=== PATIENT | male | born 1985 | race Caucasian/White ===

== ENCOUNTER 2017-09-16 13:27 | Emergency (ER) | payer BC, SELFPAY ==
[2017-09-16 14:01] VITALS: BP 132/82; PULSE 101; RESP 20; TEMP 36.8; O2SAT 97; BMI 28.1
--- NOTE | 2017-09-16 14:34 | HMH.EDUTC ---
[facility] [place]ression: Sinusitis Qualifiers: Sinusitis location: maxillary Chronicity: acute Recurrence: non-recurrent Qualified Code(s): J01.00 - Acute maxillary sinusitis, unspecified Disposition: Home, Self-Care Condition on Discharge: Good Additional Instructions: Increase fluids Follow-up with primary care this week if no improvement Tylenol Motrin as needed for pain or fever If symptoms worsen or do not improve return or be seen in the ER Prescriptions: cephALEXin [Keflex 500mg Cap] 500 mg PO BID 7 Days #14 cap Referrals: Michi Abraham MD [Primary Care Provider] - Time of Disposition: 14:57 Medical Decision Making Vital Signs: 09/16/17 14:01 09/16/17 14:56 Temperature 98.2 F 98.2 F Temperature Source Temporal Artery Scan Pulse Rate 101 H Pulse Rate [Right Brachial] 101 H Respiratory Rate 20 20 Blood Pressure 132/82 Blood Pressure [Right Arm] 132/82 Blood Pressure Mean [Right Arm] 98 Blood Pressure Source [Right Arm] Automatic Cuff Blood Pressure Position [Right Arm] Sitting 02 Sat by Pulse Oximetry 97 Oxygen Delivery Method Room Air - Lab Data Lab Results 09/16/17 13:58: Influenza Type A Ag Negative, Influenza Type B Ag Negative Orders (Tests/Meds): ED MEDICATIONS Discontinued Medications Generic Name Dose Route Start Last Admin Trade Name Bertrandq PRN Reason Stop Dose Admin Dexamethasone Sodium Phosphate 4 mg 09/16/17 14:33 09/16/17 14:35 Decadron 4mg/Ml 1ml Vial IM 09/16/17 14:34 4 mg ONCE ONE Administration - Rah Inquiry Pt receiving controlled substance: No [facility] [place] - General Chief complaint: Urgent [facility] Center Stated complaint: sinues Time Seen by Provider: 09/16/17 14:35 Mode of Arrival: Ambulatory Source of Information: Patient Limitations: No Limitations Description of Symptoms (Recalled from Triage Doc. by RN): HEAD CONGESTION, SINUS INFECTION HEENT Symptoms (Recalled from RN notes): Yes (HEAD CONGESTION, SINUS INFECTION) Resp Symptoms (Recalled from RN notes): No Skin Symptoms (Recalled from RN notes): No MS Symptoms (Recalled from RN notes): No Functional Status (Recalled from RN notes): N/A - History of Present Illness Provider Complaint: 32-year-old male presents for sinus pressure, yellow nasal congestion, and nasal drainage started yesterday. - Related Data Previous Rx's Medication Instructions Recorded cephALEXin [Keflex 500mg Cap] 500 mg PO BID 7 Days #14 cap 09/16/17 Allergies Allergy/AdvReac Type Severity Reaction Status Date / Time No Known Allergies Allergy Verified 09/16/17 14:04 - Worker's Comp Is this a Worker's Comp case?: No H History I have reviewed the patient's past medical history: Yes Medical History: Denies:: Cancer, Diabetes Mellitus Type 1, Diabetes Mellitus Type 2, MRSA Amputation: No Fractures: No - Social History Smoking Status: Never smoker Alcohol Intake: never - Psychiatric History Expresses thoughts of harming self/others: None Suicide Plan Description: No Plan ROS Obtained: Yes All systems reviewed & no additional complaints - Constitutional Constitutional: Reports system reviewed and no additional complaints, except as docu - Eyes Eyes: Reports system reviewed and no additional complaints, except as docu - ENT Ears, Nose, Mouth, and Throat: Reports system reviewed and no additional complaints, except as docu, Reports nasal congestion, Reports sinus pressure - Cardiovascular Cardiovascular: Reports system reviewed and no additional complaints, except as docu - Respiratory Respiratory: Yes system reviewed and no additional complaints, except as docu - Gastrointestinal Gastrointestingal: Reports: system reviewed and no additional complaints, except as docu - Musculoskeletal Musculoskeletal: Reports system reviewed and no additional complaints, except as docu - Integumentary/Breasts Skin/Breast: Reports system reviewed and no addit
--- NOTE | 2017-09-16 14:37 | ED_ITS ---
[facility] [place] Clinical Impression: Sinusitis Qualifiers: Sinusitis location: maxillary Chronicity: acute Recurrence: non-recurrent Qualified Code(s): J01.00 - Acute maxillary sinusitis, unspecified Disposition: Home, Self-Care Condition on Discharge: Good Additional Instructions: Increase fluids Follow-up with primary care this week if no improvement Tylenol Motrin as needed for pain or fever If symptoms worsen or do not improve return or be seen in the ER Prescriptions: cephALEXin [Keflex 500mg Cap] 500 mg PO BID 7 Days #14 cap Referrals: Michi Abraham MD [Primary Care Provider] - Time of Disposition: 14:57 Medical Decision Making Vital Signs: 09/16/17 14:01 09/16/17 14:56 Temperature 98.2 F 98.2 F Temperature Source Temporal Artery Scan Pulse Rate 101 H Pulse Rate [Right Brachial] 101 H Respiratory Rate 20 20 Blood Pressure 132/82 Blood Pressure [Right Arm] 132/82 Blood Pressure Mean [Right Arm] 98 Blood Pressure Source [Right Arm] Automatic Cuff Blood Pressure Position [Right Arm] Sitting 02 Sat by Pulse Oximetry 97 Oxygen Delivery Method Room Air - Lab Data Lab Results 09/16/17 13:58: Influenza Type A Ag Negative, Influenza Type B Ag Negative Orders (Tests/Meds): ED MEDICATIONS Discontinued Medications Generic Name Dose Route Start Last Admin Trade Name Bertrandq PRN Reason Stop Dose Admin Dexamethasone Sodium Phosphate 4 mg 09/16/17 14:33 09/16/17 14:35 Decadron 4mg/Ml 1ml Vial IM 09/16/17 14:34 4 mg ONCE ONE Administration - Rah Inquiry Pt receiving controlled substance: No [facility] [place] HPI - General Chief complaint: Urgent Treatment Center Stated complaint: sinues Time Seen by Provider: 09/16/17 14:35 Mode of Arrival: Ambulatory Source of Information: Patient Limitations: No Limitations Description of Symptoms (Recalled from Triage Doc. by RN): HEAD CONGESTION, SINUS INFECTION HEENT Symptoms (Recalled from RN notes): Yes (HEAD CONGESTION, SINUS INFECTION) Resp Symptoms (Recalled from RN notes): No Skin Symptoms (Recalled from RN notes): No MS Symptoms (Recalled from RN notes): No Functional Status (Recalled from RN notes): N/A - History of Present Illness Provider Complaint: 32-year-old male presents for sinus pressure, yellow nasal congestion, and nasal drainage started yesterday. - Related Data Previous Rx's Medication Instructions Recorded cephALEXin [Keflex 500mg Cap] 500 mg PO BID 7 Days #14 cap 09/16/17 Allergies Allergy/AdvReac Type Severity Reaction Status Date / Time No Known Allergies Allergy Verified 09/16/17 14:04 - Worker's Comp Is this a Worker's Comp case?: No [facility] History I have reviewed the patient's past medical history: Yes Medical History: Denies:: Cancer, Diabetes Mellitus Type 1, Diabetes Mellitus Type 2, MRSA Amputation: No Fractures: No - Social History Smoking Status: Never smoker Alcohol Intake: never - Psychiatric History Expresses thoughts of harming self/others: None Suicide Plan Description: No Plan ROS Obtained: Yes All systems reviewed & no additional complaints - Constitutional Constitutional: Reports system reviewed and no additional complaints, except as docu - Eyes Eyes: Repor
[2017-09-16 14:49] LABS: UTC Influenza A Antigen Negative (Negative); UTC Influenza B Antigen Negative (Negative)
[2017-09-16 14:56] VITALS: BP 132/82; PULSE 101; RESP 20; TEMP 36.8; O2SAT 97
== END 2017-09-16 14:57 | disposition home or self-care (01) ==
PROVIDERS: Emergency Provider Nurse Practitioner Family; Family Provider Family Medicine; PCP Family Medicine
DX: J01.00 Acute maxillary sinusitis, unspecified (principal)
CPT/HCPCS: 87804; 96372; 99202

== ENCOUNTER → 2018-12-26 14:07 | Outpatient (CLI) | payer BC, SELFPAY ==
--- NOTE | 2018-12-26 14:37 | US_ITS ---
US extremity LT limited HISTORY: ITS.REASON: AXILLARY SWELLING ORDERING PHYSICIAN: Michi Abraham MD PATIENT AGE: 33 years COMPARISON: None FINDINGS: There is a small lymph node in the axilla at 15 x 8 mm. No other significant anomalies are evident. No abnormal fluid collections. IMPRESSION: Small axillary lymph node otherwise negative ultrasound of left axilla
--- NOTE | 2018-12-26 14:37 | US_ITS ---
US extremity RT limited CLINICAL INDICATION: ITS.REASON: AXILLARY SWELLING ORDERING PHYSICIAN: Michi Abraham MD PATIENT AGE: 33 years Comparison: None FINDINGS: Ultrasound is performed of the right axilla spreading a 3 x 1 similar lymph node. No abnormal fluid collection or other significant anomalies evident. IMPRESSION: 3 cm x 1 cm lymph node in the right axilla. CT of the axilla may be of further value if clinically desired.
== END ==
PROVIDERS: PCP Family Medicine; Visit Provider Family Medicine
DX: M79.89 Other specified soft tissue disorders (principal)
CPT/HCPCS: 76882

== ENCOUNTER → 2019-01-15 13:54 | Outpatient (CLI) | payer BC, SELFPAY ==
--- NOTE | 2019-01-15 13:57 | CT_ITS ---
CT chest wo con HISTORY: ITS.REASON: AXILLARY LYMPHADENOPATHY ORDERING PHYSICIAN: Michi Abraham MD PATIENT AGE: 33 years COMPARISON: None Technique: Axial images obtained. Sagittal, and coronal reformatted images are also generated and reviewed. All CT scans at the facility use one or more dose reduction, viz: automated exposure control, ma/kV adjustment per patient size (including targeted exams where dose is matched to indication, i.e. head), or iterative reconstruction technique. FINDINGS: HEART: Unremarkable. Normal heart size. No significant pericardial effusion. MEDIASTINAL AND HILAR STRUCTURES: Mediastinal structures are unremarkable. There are a few very small noncalcified benign-appearing lymph nodes. There are other calcified lymph nodes the largest in the subcarinal area. There is a benign calcified right hilar lymph node. PULMONARY ARTERIES: Pulmonary arteries cannot be evaluated since intravenous contrast was not given. AORTA: Unremarkable. LUNGS: Lungs are clear except there is a benign calcific granuloma in the right middle lobe. PLEURAL SPACES: No significant effusion. No evidence of pneumothorax. BONY STRUCTURES: No acute bony abnormalities apparent LYMPH NODES: No enlarged lymph nodes evident UPPER ABDOMEN: Unremarkable ADDITIONAL FINDINGS: No other significant abnormalities IMPRESSION: Evidence of prior granulomatous disease. Some small benign-appearing noncalcified mediastinal and small partially fatty benign axillary lymph nodes bilaterally.
== END ==
PROVIDERS: PCP Family Medicine; Visit Provider Family Medicine
DX: R59.0 Localized enlarged lymph nodes (principal)
CPT/HCPCS: 71250

== ENCOUNTER → 2020-06-26 15:17 | Outpatient (CLI) | payer BC, SELFPAY ==
--- NOTE | 2020-06-26 15:20 | XR_ITS ---
PROCEDURE: XR KUB CLINICAL INDICATION: kidney stone Right-sided groin pain COMPARISON: CT CHESTWO CT chest wo con from 01/15/2019 FINDINGS: Gas pattern-The bowel gas pattern is unremarkable. No obvious obstruction. Calcifications-No abnormal calcifications are evident. No obvious renal or ureteral calculi. Bones-No acute bony anomalies evident. There are hyperdensities in the lower pelvic region which are probably vascular. IMPRESSION: No acute findings. Dictated by: Drew Antonio MD 06/26/2020 17:57 Drew Antonio MD in [place] 06/26/2020 17:57
== END ==
PROVIDERS: PCP Family Medicine; Visit Provider Urology
DX: N20.0 Calculus of kidney (principal)
CPT/HCPCS: 74018

== ENCOUNTER 2020-07-25 11:04 | Emergency (ER) | payer BC, SELFPAY ==
[2020-07-25 11:30] VITALS: BP 00/00; PULSE 0; RESP 0; TEMP -17.7; TEMP 0
--- NOTE | 2020-07-25 18:59 | PC.NURSE ---
patient notified of positive covid results
== END 2020-07-25 11:31 | disposition left against medical advice (07) ==
PROVIDERS: Emergency Provider Nurse Practitioner Family; PCP Family Medicine
DX: Z20.822 Contact with and (suspected) exposure to COVID-19 (principal)
CPT/HCPCS: U0003

== ENCOUNTER 2020-07-25 13:59 | Emergency (ER) | payer BC, SELFPAY ==
[2020-07-25 14:40] VITALS: BP 123/76; PULSE 77; RESP 20; TEMP 36.3; O2SAT 98; BMI 28.1
--- NOTE | 2020-07-25 14:57 | HMH.EDUTC ---
[facility] [place] Impression: Exposure to COVID-19 virus Sinusitis Qualifiers: Sinusitis location: unspecified location Chronicity: acute Recurrence: non-recurrent Qualified Code(s): J01.90 - Acute sinusitis, unspecified Disposition: Home, Self-Care Condition on Discharge: Good Instructions: DI for Sinusitis, Preventing the Spread of Coronavirus Discharge Instructions Additional Instructions: Drink plenty of fluids. Take tylenol for pain or fever. Return if you begin to have difficulty breathing. Follow up with your regular doctor. GO TO THE ER FOR ANY WORSENING SYMPTOMS Prescriptions: Azithromycin [Z-Lenard 250mg Tab*] 250 mg PO UD DOSE PK #6 tab Transmission Status: Received by [facility] Referrals: Michi Abraham MD [Primary Care Provider] - Time of Disposition: 15:06 Medical Decision Making - Medical Records Medical records reviewed: No: I reviewed the patient's medical records. - Rah Inquiry Pt receiving controlled substance: No Vital Signs: 07/25/20 14:40 07/25/20 15:05 Temperature 97.4 F L 97.4 F L Temperature Source Oral Pulse Rate 77 Pulse Rate [Right Brachial] 77 Respiratory Rate 20 20 Blood Pressure 123/76 Blood Pressure [Right Arm] 123/76 Blood Pressure Mean [Right Arm] 91 Blood Pressure Source [Right Arm] Automatic Cuff Blood Pressure Position [Right Arm] Sitting 02 Sat by Pulse Oximetry 98 Oxygen Delivery Method Room Air [facility] [place] - General Stated complaint: Covid exposure Time Seen by Provider: 07/25/20 14:57 Mode of Arrival: Ambulatory Source of Information: Patient Limitations: No Limitations Description of Symptoms (Recalled from Triage Doc. by RN): PATIENT REQUESTING COVID TEST D/T EXPOSURE; C/O NASAL CONGESTION HEENT Symptoms (Recalled from RN notes): Yes Resp Symptoms (Recalled from RN notes): No Skin Symptoms (Recalled from RN notes): No MS Symptoms (Recalled from RN notes): No Functional Status (Recalled from RN notes): WNL - History of Present Illness Provider Complaint: He states that he has been exposed to covid by his having it. He c/o sinus congestion for the past 2 days. He has a history of getting bad sinus infections. - Related Data Previous Rx's Medication Instructions Recorded cephALEXin [Keflex 500mg Cap] 500 mg PO BID 7 Days #14 cap 09/16/17 Azithromycin [Z-Lenard 250mg Tab*] 250 mg PO UD DOSE PK #6 tab 07/25/20 Allergies Allergy/AdvReac Type Severity Reaction Status Date / Time No Known Allergies Allergy Verified 06/26/20 15:30 - Worker's Comp Is this a Worker's Comp case?: No [facility] History - Hepatitis A Screen Drug use history?: No High risk sexual behaviors?: No History of sexually transmitted infection?: No Currently employed?: No Childcare worker?: No Do you have indoor plumbing?: Yes Do you have electricity?: Yes Attestation statement:: This patient has been screened for Hepatitis A risk factors. I have reviewed the patient's past medical history: Yes Medical History: Reports:: Kidney Stones Denies:: Cancer, Diabetes Mellitus Type 1, Diabetes Mellitus Type 2, MRSA Other Surgeries: Yes: No Previous Surgery Amputation: No Fractures: No Comment: kidney stone 10 yrs ago - Social History Smoking Status: Never smoker Alcohol Intake: never Occupational Status: other Housing: house Household Members: spouse, family Family Hx:: Cancer, Diabetes, Heart Attack, Hypertension ROS Obtained: Yes All systems reviewed & no additional complaints - Constitutional Constitutional: Reports chills, Denies fever(s), Reports poor appetite, Reports malaise - Eyes Eyes: Denies eye discharge - ENT Ears, Nose, Mouth, and Throat: Reports as per HPI - Cardiovascular Cardiovascular: Denies chest pain - Respiratory Respiratory: Yes as per HPI Physical Exam - General General appearance: alert, in no apparent distress - Head Head exam: atraumatic, normocephalic, normal inspection -
[2020-07-25 15:05] VITALS: BP 123/76; PULSE 77; RESP 20; TEMP 36.3; O2SAT 98
== END 2020-07-25 15:11 | disposition home or self-care (01) ==
PROVIDERS: Emergency Provider Nurse Practitioner Family; PCP Family Medicine
DX: U07.1 COVID-19 (principal); J01.90 Acute sinusitis, unspecified
CPT/HCPCS: 99202; G0463

== ENCOUNTER 2022-05-30 21:07 | Emergency (ER) | payer BC, SELFPAY ==
[2022-05-30 21:08] VITALS: BP 151/97; PULSE 81; RESP 16; TEMP 36.6; O2SAT 99; BMI 29.0
--- NOTE | 2022-05-30 21:57 | XR_ITS ---
PROCEDURE INFORMATION: Exam: XR Chest Exam date and time: 05/30/2022 9:54 PM Age: 36 years old Clinical indication: Other: High BP TECHNIQUE: Imaging protocol: Radiologic exam of the chest. Views: 2 views. COMPARISON: CHESTWO CT chest wo con 01/15/2019 2:03 PM FINDINGS: Lungs: Granuloma within the right lower lobe. No consolidation. Pleural spaces: No pneumothorax. Heart/Mediastinum: Calcified mediastinal and hilar lymph nodes. No cardiomegaly. Bones/joints: No acute fracture. IMPRESSION: No acute findings.
--- NOTE | 2022-05-30 21:59 | ECG_ITS ---
APPROVED REPORT Exam: Resting ECG HR:66 bpm ECG Measurements Heart Rate 66 AXES AR 162 P 49 QRSd 96 QRS 76 QT 366 T 57 QTc 380 Conclusion SINUS RHYTHM NORMAL ECG UNCONFIRMED REPORT Electronically signed by : Michi Zafar MD 05/31/2022 18:08:46
--- NOTE | 2022-05-30 22:05 | PC.NURSE ---
pt getting xray at this time
[2022-05-30 22:48] LABS: Basophils # 0.1 K/mm3 (0-0.2); Basophils % 0.8 % (0.1-2.0); Eosinophils # 0.1 K/mm3 (0.0-0.4); Eosinophils % 0.9 % (0.1-12.0); Hematocrit 49.2 % (42.0-52.0); Lymphocytes # 2.8 K/mm3 (0.7-4.5); Mean Corpuscular HGB Conc 34.5 g/dL (31.8-35.4); Mean Corpuscular Hemoglobin 28.7 pg (27.0-31.2); Mean Corpuscular Volume 83.1 fl (80-94); Monocytes # 0.8 K/mm3 (0.1-1.0); Monocytes % 5.1 % (1.7-9.3); Neutrophils % 74.2 % (37.0-80.0); Platelet Count 327 K/mm3 (142-424); Red Blood Count 5.92 M/mm3 (4.60-6.20); White Blood Count 14.7 K/mm3 (4.8-10.8)
[2022-05-30 23:00] VITALS: BP 136/83; PULSE 69; O2SAT 99
[2022-05-30 23:00] LABS: Chloride 99 mmol/L (98-107); Potassium 3.7 mmoL/L (3.5-5.1); Sodium 140 mmol/L (136-145)
[2022-05-30 23:03] LABS: Alanine Aminotransferase 32 U/L (12-78); Albumin Level 4.8 g/dl (3.5-5.0); Albumin/Globulin Ratio 1.5 (1.1-1.8); Alkaline Phosphatase 73 U/L (38-126); Anion Gap 15.7 mEq/L (5-15); Aspartate Amino Transferase 37 U/L (17-59); Bilirubin,Total 0.4 mg/dl (0.2-1.3); Blood Urea Nitrogen 14 mg/dl (9-20); Carbon Dioxide 29 mmol/L (22.0-30.0); Creatinine Clearance Estimated 120 mL/min (50-200); Estimated Glomerular Filt Rate 84 ml/min (>60); GFR (African American) 102 ML/MIN (>60); Globulin 3.1 g/dL (1.3-3.2); Total Protein,Serum 7.9 g/dl (6.3-8.2)
[2022-05-30 23:04] LABS: Calcium 10.1 mg/dl (8.4-10.2); Glucose 106 mg/dl (74-100)
[2022-05-30 23:17] LABS: Troponin I < 0.01 ng/ml (0.00-0.034)
--- NOTE | 2022-05-30 23:26 | PC.NURSE ---
Dr. Melendrez at
--- NOTE | 2022-05-30 23:31 | HMH.EDDIZZ ---
Discharge Plan Disposition Patient Disposition: Home, Self-Care Chief Complaint: Dizziness Prescriptions Prescriptions: No Action tadalafil 5 mg tablet 5 mg PO DAILY Qty: 30 5RF cephalexin 500 MG capsule 500 mg PO BID 7 Days Qty: 14 0RF azithromycin 250 MG tablet 250 mg PO UD DOSE PK Qty: 6 0RF Rx Instructions: Take two (2) tablets today, then one (1) tablet days #2 thru #5 Referrals Follow up/Referrals: Tanvir Monsivais MD [Primary Care Provider] - See instructions Clinical Impressions Clinical Impression: Dizziness Instructions Patient Instructions: Dizziness, Nonvertigo Discharge ED Provider: Jordan Melendrez Dizzy HPI General Chief Complaint: Dizziness Stated Complaint: possible high BP dizzy Time Seen by Provider: 05/30/22 23:31 Mode of Arrival: Ambulatory Source of Information: Patient and Medical Record Limitations: No Limitations Description of Symptoms (Recalled from ER Triage Doc. by RN): pt states was seen by pcp 2 weeks ago for high blood pressure. tonight pt states he felt like his head was tingling and he was dizzy. pt denies ROA History of Present Illness HPI Narrative: has feeling of dizzyness with sl elevated bp - no recent viral illness and no fever/rash or trauma - no focal neuro sx - MD complaint: dizziness Onset (ago): hour(s) Timing: gradual onset Description: lightheadedness History of similar episodes: Yes History of trauma: No Severity: moderate Associated symptoms: denies other symptoms Related Data Previous Rx's Medication Instructions Recorded cephalexin 500 mg capsule 500 mg PO BID 7 days #14 caps 09/16/17 azithromycin 250 mg tablet 250 mg PO UD DOSE PK #6 tabs 07/25/20 tadalafil 5 mg tablet 5 mg PO DAILY #30 tabs 03/24/22 Allergies Allergy/AdvReac Type Severity Reaction Status Date / Time No Known Allergies Allergy Verified 02/05/21 15:40 PFSH PFSH Social History Smoking Status: Never smoker alcohol intake: never substance use type: denies use current occupational status: other Travel in the last 8 weeks: None household members: spouse and family housing: house ROS Obtained: Yes All systems reviewed & no additional complaints except as documented Physical Exam General General appearance: alert Head Head exam: normocephalic Eye Eye exam: Present PERRL and EOMI; Absent nystagmus ENT ENT exam: Present mucous membranes moist and TM's normal bilaterally Neck Neck exam: Present trachea midline Respiratory Respiratory exam: Present normal lung sounds bilaterally; Absent respiratory distress Cardiovascular Cardiovascular exam: Present regular rate; Absent systolic murmur Abdominal Exam Abdominal exam: Present soft Extremities Exam Extremities exam: Present full ROM Neurological Exam Neurological exam: Present alert, oriented X3 and CN II-XII intact; Absent motor sensory deficit Psychiatric Psychiatric exam: Present normal affect Skin Skin exam: Absent rash Medical Decision Making Medical Records Medical records reviewed: Yes I reviewed the patient's medical records. Rah Inquiry Pt receiving controlled substance: No Vital Signs: 05/30/22 21:08 05/30/22 23:00 Temperature 97.9 F Temperature Source Oral Pulse Rate 69 Pulse Rate [Right] 81 Respiratory Rate 16 Blood Pressure 136/83 Blood Pressure [Right Arm] 151/97 H Blood Pressure Mean [Right Arm] 115 02 Sat by Pulse Oximetry 99 99 Oxygen Delivery Method Room Air Lab Data Lab results reviewed: Yes I reviewed the patient's lab results. Lab Results 05/30/22 22:37: WBC 14.7 H, RBC 5.92, Hgb 17.0, Hct 49.2, MCV 83.1, MCH 28.7, MCHC 34.5, RDW 13.0, Plt Count 327, MPV 8.0, Neut % (Auto) 74.2, Lymph % (Auto) 19.0, George % (Auto) 5.1, Eos % (Auto) 0.9, Baso % (Auto) 0.8, Neut # (Auto) 11.0 H, Lymph # (Auto) 2.8, George # (Auto) 0.8, Eos # (Auto) 0.1, Baso # (Auto) 0.1 05/30/22 22:37: Sodium 140, Potassium 3.7, Chloride 99, Carbon Dioxide 29, Anion Ga
[2022-05-30 23:37] VITALS: BP 144/93; PULSE 77; RESP 16; TEMP 36.6; O2SAT 99
== END 2022-05-30 23:39 | disposition home or self-care (01) ==
PROVIDERS: Emergency Provider Emergency Medicine; PCP Family Medicine
DX: R42 Dizziness and giddiness (principal)
CPT/HCPCS: 71046; 80053; 84484; 85025; 93005; 99284

== ENCOUNTER 2022-06-02 20:36 | Emergency (ER) | payer BC, SELFPAY ==
--- NOTE | 2022-06-02 20:33 | ECG_ITS ---
APPROVED REPORT Exam: Resting ECG HR:80 bpm ECG Measurements Heart Rate 80 AXES MO 154 P 62 QRSd 94 QRS 77 QT 337 T 58 QTc 373 Conclusion SINUS RHYTHM WITH SINUS ARRHYTHMIA NORMAL ECG UNCONFIRMED REPORT Electronically signed by : Michi Zafar MD 06/03/2022 20:00:47
[2022-06-02 20:52] VITALS: BP 156/100; PULSE 94; RESP 18; TEMP 36.8; O2SAT 100; BMI 29.0
--- NOTE | 2022-06-02 21:03 | XR_ITS ---
PROCEDURE INFORMATION: Exam: XR Chest Exam date and time: 06/02/2022 9:42 PM Age: 36 years old Clinical indication: Sternal or substernal pain; Additional info: Chest pain TECHNIQUE: Imaging protocol: Radiologic exam of the chest. Views: 2 views. COMPARISON: CR XR CHEST 2V 05/30/2022 9:54 PM FINDINGS: Lungs: Stable right lower lung zone granuloma. No consolidation. Pleural spaces: No pneumothorax. Heart/Mediastinum: No cardiomegaly. Bones/joints: No acute fracture. IMPRESSION: No acute findings.
--- NOTE | 2022-06-02 21:11 | HMH.EDCP ---
Discharge Plan Disposition Patient Disposition: Home, Self-Care Prescriptions Prescriptions: No Action fexofenadine [Radha Allergy] 60 mg Tablet 60 mg PO BID esomeprazole magnesium [Nexium] 40 mg Capsule,Delayed Release(Dr/Ec) 40 mg PO DAILY tadalafil 5 mg tablet 5 mg PO DAILY Referrals Follow up/Referrals: Provider,Referral, MD [Primary Care Provider] - See instructions Clinical Impressions Clinical Impression: Atypical chest pain, Elevated BP without diagnosis of hypertension Instructions Patient Instructions: DI for Atypical Chest Pain Discharge ED Provider: Jordan Melendrez Chest Pain HPI General Chief Complaint: Chest Pain Stated Complaint: chest pain Time Seen by Provider: 06/02/22 21:11 Mode of Arrival: Ambulatory Source of Information: Patient and Medical Record Limitations: No Limitations Description of Symptoms (Recalled from ER Triage Doc. by RN): Pt states that he was seen in the ER for dizziness Monday. Says that last night at approx 0100 he woke up with severe chest pressure and an elevated heart rate. States he felt like there was a fluttering in his chest and he was short of air but the fluttering would improve if he coughed. Additionally c/o chest pain that is intermittent. History of Present Illness HPI narrative: pt with chest tightness today with tingling to scalp and feeling of chest tightness - was seen by ed with elevated bp and dizzyness and has seen pcp - MD complaint: chest pain indicative of cardiac Onset (ago): hour(s) Duration: intermittent Activity at onset: during rest Pain location: left chest Severity: moderate Quality: other (pressure ) Pain radiation: none Risk Factors for CAD: Hypertension and Family Hx of CAD Treatments prior to or on arrival for Cardiac Chest Pain: none CHARLES Score for Non-Stemi Age of Patient: 30-39 years old Heart Rate: 70-89 bpm Systolic Blood Pressure: 120-139 mmhg Serum Creatinine: 0.80-1.19 mg/dl CHF [place] Class: I-No CHF Other Risk Factors: None Non-Stemi Risk Score: 58 Related Data Home Medications Medication Instructions Recorded Confirmed esomeprazole magnesium 40 mg 40 mg PO DAILY GERD 06/02/22 06/02/22 capsule,delayed release (Nexium) fexofenadine 60 mg tablet (Radha 60 mg PO BID allergies 06/02/22 06/02/22 Allergy) tadalafil 5 mg tablet 5 mg PO DAILY erectile dysfunction 06/02/22 06/02/22 Allergies Allergy/AdvReac Type Severity Reaction Status Date / Time No Known Allergies Allergy Verified 02/05/21 15:40 PFSH PFSH Social History Smoking Status: Never smoker alcohol intake: never substance use type: denies use current occupational status: other Travel in the last 8 weeks: None household members: spouse and family housing: house ROS Obtained: Yes All systems reviewed & no additional complaints except as documented Cardiovascular Cardiovascular: Reports as per HPI, Reports chest pain and Reports dyspnea Respiratory Respiratory: Reports as per HPI and Reports dyspnea Physical Exam General General appearance: alert Head Head exam: normocephalic Eye Eye exam: Present PERRL and EOMI ENT ENT exam: Present mucous membranes moist Neck Neck exam: Present trachea midline Respiratory Respiratory exam: Present normal lung sounds bilaterally; Absent respiratory distress Cardiovascular Cardiovascular exam: Present regular rate; Absent systolic murmur or rubs Abdominal Exam Abdominal exam: Present soft; Absent tenderness or guarding Extremities Exam Extremities exam: Present full ROM; Absent calf tenderness Neurological Exam Neurological exam: Present alert, oriented X3 and CN II-XII intact Psychiatric Psychiatric exam: Present normal affect Skin Skin exam: Absent rash Medical Decision Making Medical Records Medical records reviewed: Yes I reviewed the patient's medical records. Rah Inquiry Pt receiving controlled substance: No Vital Signs: 06/02/22 20:52 [place]
[2022-06-02 21:26] LABS: Basophils # 0.1 K/mm3 (0-0.2); Basophils % 0.9 % (0.1-2.0); Eosinophils # 0.1 K/mm3 (0.0-0.4); Eosinophils % 0.4 % (0.1-12.0); Hematocrit 51.3 % (42.0-52.0); Hemoglobin 17.5 g/dL (14.1-18.0); Lymphocytes # 3.2 K/mm3 (0.7-4.5); Lymphocytes % 25.4 % (10-50); Mean Corpuscular HGB Conc 34.2 g/dL (31.8-35.4); Mean Corpuscular Hemoglobin 28.9 pg (27.0-31.2); Mean Corpuscular Volume 84.4 fl (80-94); Mean Platelet Volume 8.2 fl (7.4-10.4); Monocytes # 0.7 K/mm3 (0.1-1.0); Monocytes % 5.8 % (1.7-9.3); Neutrophils # 8.5 K/mm3 (1.8-7.8); Neutrophils % 67.6 % (37.0-80.0); Platelet Count 359 K/mm3 (142-424); Red Blood Count 6.08 M/mm3 (4.60-6.20); Red Cell Distribution Width 13.1 % (11.5-17.5); White Blood Count 12.6 K/mm3 (4.8-10.8)
--- NOTE | 2022-06-02 21:45 | CT_ITS ---
PROCEDURE INFORMATION: Exam: CTA Chest With Contrast Exam date and time: 06/02/2022 10:50 PM Age: 36 years old Clinical indication: Sternal or substernal pain; Additional info: Chest pressure TECHNIQUE: Imaging protocol: Computed tomographic angiography of the chest with contrast. 3D rendering (Not supervised by radiologist): MIP and/or 3D reconstructed images were created by the technologist. Radiation optimization: All CT scans at this facility use at least one of these dose optimization techniques: automated exposure control; mA and/or kV adjustment per patient size (includes targeted exams where dose is matched to clinical indication); or iterative reconstruction. Contrast material: ISOVUE 370; Contrast volume: 70 ml; Contrast route: INTRAVENOUS (IV); COMPARISON: CHESTWO CT chest wo con 01/15/2019 2:03 PM FINDINGS: Pulmonary arteries: Normal. No pulmonary emboli. Aorta: No aortic aneurysm. No aortic dissection. Lungs: Granuloma within the right middle lobe. Hypoventilatory changes. No consolidation. Pleural spaces: No pneumothorax. No pleural effusion. Heart: No cardiomegaly. No pericardial effusion. Lymph nodes: No enlarged lymph nodes. Bones/joints: No acute fracture. Soft tissues: No significant swelling. IMPRESSION: No acute findings.
[2022-06-02 21:48] LABS: Chloride 98 mmol/L (98-107); Potassium 3.2 mmoL/L (3.5-5.1); Sodium 139 mmol/L (136-145)
[2022-06-02 21:51] LABS: Anion Gap 18.2 mEq/L (5-15); Blood Urea Nitrogen 10 mg/dl (9-20); Calcium 10.5 mg/dl (8.4-10.2); Carbon Dioxide 26 mmol/L (22.0-30.0); Creatinine Clearance Estimated 120 mL/min (50-200); Estimated Glomerular Filt Rate 84 ml/min (>60); GFR (African American) 102 ML/MIN (>60); Glucose 100 mg/dl (74-100)
[2022-06-02 22:06] LABS: Troponin I < 0.01 ng/ml (0.00-0.034)
[2022-06-03 00:28] LABS: Troponin I < 0.01 ng/ml (0.00-0.034)
[2022-06-03 00:42] VITALS: BP 150/80; PULSE 78; PULSE 88; RESP 18; TEMP 36.6; O2SAT 98
== END 2022-06-03 00:49 | disposition home or self-care (01) ==
PROVIDERS: Emergency Provider Emergency Medicine
DX: R07.9 Chest pain, unspecified (principal); R42 Dizziness and giddiness; R20.2 Paresthesia of skin; I10 Essential (primary) hypertension; I48.92 Unspecified atrial flutter; K21.9 Gastro-esophageal reflux disease without esophagitis; N52.9 Male erectile dysfunction, unspecified; Z82.49 Family history of ischemic heart disease and other diseases of the circulatory system; Z79.899 Other long term (current) drug therapy
CPT/HCPCS: 71046; 71275; 80048; 83735; 84484; 85025; 93005; 96374; 96375; 99285; Q9967

== ENCOUNTER → 2022-07-06 12:46 | Outpatient (CLI) | payer BC, SELFPAY ==
--- NOTE | 2022-07-06 12:47 | CA_ITS ---
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 RVT Ht: 5 ft 7 in Wt: 189lbs BSA: 1.97 BP: 133/88 mmHg Indications: SOA,ABN EKG,HTN,CP 2D Dimensions LVOT 1.89 cm (M/F) 1.5-2.5 LA Volume 20.80 mL LA Volume Index 10.51 mL/m2 (M/F) 16-34 M-Mode Dimensions RVDd 1.79 cm (0.9-2.6) LA Diam 3.07 cm (1.9-4.0) LVDd 4.04 cm (3.5-5.7) Ao Diam 2.78 cm (2.0-3.7) LVDs 2.83 cm (3.5-5.7) IVSd 0.79 cm (0.6-1.1) PWd 1.22 cm (0.6-1.1) EF (Teich) 57.70% FS 30.00% EDV (Teich) 71.70 mL TAPSE 2.10 (<1.7) ESV (Teich) 30.30 mL LV Diastology E Decel Time 150.00 (160-240 msec) E/A Ratio 1.8 MED E' 10.80 (< 7 cm/sec) E'/MED E' Ratio 10.47 (>14) LAT E' 17.10 (<10 cm/sec) E/LAT E' Ratio 6.61 (>14) Aortic Valve AO Peak GR. 6.30 mmHg Mitral Valve MV E Max Brenden. 113.00 (40-130 cm/s) MV A Velocity 63.00 (40-130 cm/s) E/A Ratio 1.81 MV Decel. Time 150.00 (160-240 ms) MV PHT 44.00 ms Pulmonary Valve PV Peak Velocity 76.00 (50-150 cm/s) Left Ventricle Left atrium is normal size, left ventricle is normal size, there is no concentric left ventricular hypertrophy, estimated ejection fraction 55% with no regional wall motion abnormality, diastolic parameters are within normal range. Right Ventricle Right atrium and right ventricle are normal size and contractility. Aortic Valve Aortic valve is grossly normal, there is no aortic stenosis or aortic insufficiency. Mitral Valve Mitral valve grossly normal, there is trace mitral regurgitation. Tricuspid Valve Tricuspid grossly normal, there is trace tricuspid regurgitation, tricuspid regurgitation jet velocity is inadequate for calculation of the right ventricular systolic pressure. Pulmonic Valve Pulmonic valve is poorly visualized. Great Vessels Aortic root is normal size. Inferior vena cava is normal size with normal inspiratory collapse. Pericardium No significant pericardial effusion noted. Conclusion 1. Normal left ventricular size, preserved left ventricular systolic function, estimated ejection fraction 55% with no regional wall motion abnormality, diastolic parameters are within normal range. 2. Trace mitral and tricuspid regurgitation. 3. No significant pericardial effusion. 4. Inferior vena cava is normal size with normal inspiratory collapse. Electronically signed by : Ari Jorge MD 07/06/2022 19:57:53
== END ==
PROVIDERS: PCP Family Medicine; Visit Provider Nurse Practitioner Family
DX: R06.00 Dyspnea, unspecified (principal); R07.9 Chest pain, unspecified; R42 Dizziness and giddiness; I10 Essential (primary) hypertension; R94.31 Abnormal electrocardiogram [ECG] [EKG]
CPT/HCPCS: 93306

== ENCOUNTER → 2023-02-14 15:43 | Outpatient (CLI) | payer BC, SELFPAY ==
--- NOTE | 2023-02-14 15:47 | XR_ITS ---
FINAL REPORT CLINICAL HISTORY: H/O KIDNEY STONE, RT FLANK PAIN COMPARISON: 06/26/2020 FINDINGS: ABDOMEN SINGLE VIEW There is nonspecific, nonobstructive bowel gas pattern. No bowel dilation is identified. No abnormal calcification is seen. IMPRESSION No acute process. Reviewed, Interpreted and Dictated by Anca Olea MD Transcribed by Merna Cardona Authenticated and [facility]
== END ==
LOC: RAD 15:44
PROVIDERS: PCP Family Medicine; Visit Provider Family Medicine
DX: R30.0 Dysuria (principal); N20.0 Calculus of kidney
CPT/HCPCS: 74018

== ENCOUNTER → 2023-02-15 08:56 | Outpatient (CLI) | payer BC, SELFPAY ==
[2023-02-15 10:52] LABS: Alanine Aminotransferase 46 U/L (12-78); Albumin Level 4.6 g/dl (3.5-5.0); Alkaline Phosphatase 63 U/L (38-126); Aspartate Amino Transferase 35 U/L (17-59); Bilirubin,Indirect 0.8 mg/dL (0.0-0.9); Bilirubin,Total 0.8 mg/dl (0.2-1.3); Bilirubin,Unconjugated 0.9 mg/dL (0.0-1.1); Chol/HDL Ratio 4.2 (1-3.5); Cholesterol 184 mg/dl (140-200); HDL Cholesterol 44 mg/dl (40-60); Total Protein,Serum 7.3 g/dl (6.3-8.2); Triglycerides 167 mg/dl (30-150); VLDL Cholesterol 33 mg/dL (0-40)
[2023-02-15 11:03] LABS: Direct LDL Cholesterol 106.65 mg/dL (100-129)
== END ==
PROVIDERS: PCP Family Medicine; Visit Provider Nurse Practitioner Family
DX: E78.5 Hyperlipidemia, unspecified (principal); I10 Essential (primary) hypertension; R94.31 Abnormal electrocardiogram [ECG] [EKG]
CPT/HCPCS: 80061; 80076

== ENCOUNTER → 2023-05-15 07:41 | Outpatient (CLI) | payer BC, SELFPAY ==
[2023-05-15 15:12] LABS: Adenovirus F 40/41, stool Not Detected (NotDetected); Astrovirus Not Detected (NotDetected); Campylobacter Not Detected (NotDetected); Clostridium Difficile A/B, PCR Not Detected (NotDetected); Cryptosporidium Not Detected (NotDetected); Cyclospora Cayetanesis Not Detected (NotDetected); Entamoeba histolytica Not Detected (NotDetected); Enteroaggregative E coli Not Detected (NotDetected); Enteropathogenic E coli Not Detected (NotDetected); Enterotoxigenic E coli Not Detected (NotDetected); Giardia lamblia Not Detected (NotDetected); Norovirus Not Detected (NotDetected); Plesimonas Shigalloides, PCR Not Detected (NotDetected); Rotavirus A Not Detected (NotDetected); Salmonella, PCR Not Detected (NotDetected); Sapovirus Not Detected (NotDetected); Shiga-like toxin E coli Not Detected (NotDetected); Shigella Enterovasive E coli Not Detected (NotDetected); Vibrio Cholerae Not Detected (NotDetected); Vibrio, PCR Not Detected (NotDetected); Yersinia Entercolitica, PCR Not Detected (NotDetected)
== END ==
PROVIDERS: Nurse Practitioner; PCP Family Medicine; Visit Provider Family Medicine
DX: R19.7 Diarrhea, unspecified (principal)
CPT/HCPCS: 87507

== ENCOUNTER 2023-06-24 11:16 | Emergency (ER) | payer BC, SELFPAY ==
[2023-06-24 11:18] VITALS: BP 137/90; PULSE 74; RESP 21; TEMP 36.6; O2SAT 98; BMI 28.7
--- NOTE | 2023-06-24 11:21 | HMH.EDGENADL ---
Discharge Plan Disposition Patient Disposition: Home, Self-Care Prescriptions Prescriptions: No Action metoprolol succinate 25 mg tablet extended release 24 hr 25 mg PO DAILY Qty: 90 3RF atorvastatin 10 mg tablet 10 mg PO DAILY Qty: 90 3RF fexofenadine [Radha Allergy] 60 mg Tablet 60 mg PO BID esomeprazole magnesium [Nexium] 40 mg Capsule,Delayed Release(Dr/Ec) 40 mg PO DAILY tadalafil 5 mg tablet 5 mg PO DAILY Referrals Follow up/Referrals: Tanvir Monsivais MD [Primary Care Provider] - See instructions Activity Restrictions/Add. Instructions Additional Instructions/Restrictions: Please follow-up with your primary care provider. Please return to the emergency department if you develop any new or worsening symptoms or become concerned for your health. Recommend taking melatonin at home as needed for sleep. Clinical Impressions Clinical Impression: Stress due to illness of family member Discharge ED Provider: Fuentes Lopez General Adult HPI General Stated complaint: SOA, light headed, possible anxiety Time Seen by Provider: 06/24/23 11:21 History of Present Illness HPI narrative: 37-year-old male, history of anxiety, hypertension, hyperlipidemia presents with reports of complaints of anxiety. He reports he has had multiple stressful events recently with hospitalization of his mother and her being placed in a nursing facility. He has had difficulty sleeping and has felt anxious as a result. 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 He was previously prescribed Vistaril, but it did not seem to help today. Denies any chest pain at any point. Does report a intermittent globus sensation. Related Data Home Medications Medication Instructions Recorded Confirmed esomeprazole magnesium 40 mg 40 mg PO DAILY GERD 06/02/22 10/17/22 capsule,delayed release (Nexium) fexofenadine 60 mg tablet (Radha 60 mg PO BID allergies 06/02/22 10/17/22 Allergy) tadalafil 5 mg tablet 5 mg PO DAILY erectile dysfunction 06/02/22 10/17/22 Previous Rx's Medication Instructions Recorded atorvastatin 10 mg tablet 10 mg PO DAILY #90 tabs 10/17/22 metoprolol succinate 25 mg 25 mg PO DAILY #90 tabs 10/17/22 tablet,extended release 24 hr Allergies Allergy/AdvReac Type Severity Reaction Status Date / Time No Known Allergies Allergy Verified 10/17/22 14:36 [facility] Disclaimer: The information contained in this section may have been updated after the patient was seen, as this information can be updated by other users. Medical History (Updated 10/17/22 @ 14:53 by Kelsy Coronel RN) Abnormal electrocardiogram [ECG] [EKG] Chest pain Dizziness Dyspnea HLD (hyperlipidemia) HTN (hypertension) Social History Smoking Status: Never smoker alcohol intake: never substance use type: denies use current occupational status: other Travel in the last 8 weeks: None household members: spouse and family housing: house ROS Obtained: Yes All systems reviewed & no additional complaints except as documented Physical Exam General General appearance: alert and in no apparent distress Head Head exam: atraumatic and normocephalic Eye Eye exam: Present normal appearance, PERRL and EOMI ENT ENT exam: Present normal oropharynx and normal external ear exam Neck Neck exam: Present normal inspection and full ROM Chest Chest inspection: Present normal inspection and symmetric chest wall rise; Absent tenderness Respiratory Respiratory exam: Present normal lung sounds bilaterally; Absent respiratory distress Cardiovascular Cardiovascular exam: Present regular rate and normal rhythm Abdominal Exam Abdominal exam: Present soft; Absent distention, tenderness or guarding Extremities Exam Extremities exam: Present normal inspection; Absent edema or joint swelling Back Exam Hannah
--- NOTE | 2023-06-24 11:40 | ECG_ITS ---
APPROVED REPORT Exam: Resting ECG HR:69 bpm ECG Measurements Heart Rate 69 AXES IL 158 P 59 QRSd 89 QRS 65 QT 353 T 76 QTc [address] ELEVATION, PROBABLY EARLY REPOLARIZATION [ST ELEVATION WITH NORMALLY INFLECTED T-WAVE] BORDERLINE ECG UNCONFIRMED REPORT Electronically signed by : Michi Zafar MD 06/26/2023 17:42:10
[2023-06-24 11:59] VITALS: BP 134/86; PULSE 77; RESP 17; TEMP 36.6; O2SAT 98
== END 2023-06-24 12:09 | disposition home or self-care (01) ==
PROVIDERS: Emergency Provider Emergency Medicine; PCP Family Medicine
DX: R06.02 Shortness of breath (principal); R42 Dizziness and giddiness; F41.9 Anxiety disorder, unspecified; I10 Essential (primary) hypertension; E78.5 Hyperlipidemia, unspecified
CPT/HCPCS: 93005; 99283

== ENCOUNTER 2024-02-05 09:35 | Emergency (ER) | payer BC, SELFPAY ==
[2024-02-05 09:40] VITALS: BP 134/86; PULSE 73; RESP 20; TEMP 36.7; O2SAT 98; BMI 29.0
[2024-02-05 09:54] LABS: Apearance,Urine Clear (Clear); Bilirubin,Urine Negative (Negative); Blood, Urine Negative (Negative); Color,Urine Yellow (Yellow); Glucose,Urine (UA) Negative (Negative); Ketones,Urine Negative (Negative); Protein,Urine Negative (Negative); UTC Leukocyte Esterase,Urine Negative (Negative); UTC Nitrate,Urine Negative (Negative); Urobilinogen,Urine 0.2 EU/dl (0.2)
--- NOTE | 2024-02-05 10:10 | ED_ITS ---
Discharge Plan Disposition Patient Disposition: Home, Self-Care Condition: Good Prescriptions Prescriptions: New etodolac 200 mg capsule 200 mg PO Q8H PRN (Reason: pain) Qty: 14 0RF methocarbamol 500 mg tablet 500 mg PO TID PRN (Reason: muscle spasm) Qty: 15 0RF No Action metoprolol succinate 25 mg tablet extended release 24 hr 25 mg PO DAILY Qty: 90 1RF atorvastatin 10 mg tablet 10 mg PO DAILY Qty: 90 3RF esomeprazole magnesium [Nexium] 40 mg Capsule,Delayed Release(Dr/Ec) 40 mg PO DAILY fexofenadine [Radha Allergy] 60 mg tablet 60 mg PO DAILY Referrals Follow up/Referrals: Tanvir Monsivais MD [Primary Care Provider] - See instructions Activity Restrictions/Add. Instructions Additional Instructions/Restrictions: *Not additional anti-inflammatory like Iburprofen motrin, aleve, advil with the above amount of Etodolac. You can still take Tylenol every 4 hours as needed if you need something else for pain *Ice 20 minutes every 2 hours for the first 48 hours after the initial injury followed by moist heat every 20 minutes 3-4 times a day to affected area *Muscle relaxer every 8 hours as needed for muscle spasms but remember, it WILL cause drowsiness You cannot take it and drive, operate machinery or care for small children. *Keep this area active, no movement leads to more stiffness, However take it easy and avoid heavy lifting pushing or pulling *Follow up with you family doctor if no improvement for further treatment Clinical Impressions Clinical Impression: Low back strain Qualifiers: Encounter type: initial encounter Qualified Code(s): S39.012A - Strain of muscle, fascia and tendon of lower back, initial encounter Instructions Patient Instructions: DI for Low Back Pain, Methocarbamol, Etodolac Discharge ED Provider: Yumiko Pierce [facility] General Stated complaint: Pain in R side Mode of Arrival: Ambulatory Source of Information: Patient Limitations: No Limitations Time Seen by Provider: 02/05/24 10:12 Description of Symptoms (Recalled from Triage Doc. by RN): PATIENT C/O RIGHT LOWER BACK PAIN THAT STARTED APPROX 1.5 WEEKS AGO. NO KNOWN INJURY. 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 States not sure if he may have done something to hurt his back or not but he has been having pain in his right lower back/side for about a week or so States worse at times with movement and he feels like it catches and then he can stretch and it feels a little better States he has had kidney stones in the past but doesnt feel like it did then so today when it was still bothering him he came in to get checked Denies burning with urination, denies pain with urination States that he 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 been working on the farm [employer] not sure if he may have hurt himself Related Data Home Medications Medication Instructions Recorded Confirmed esomeprazole magnesium 40 mg 40 mg PO DAILY GERD 06/02/22 02/05/24 capsule,delayed release (Nexium) fexofenadine 60 mg tablet (Radha 60 mg PO DAILY allergies 10/18/23 02/05/24 Allergy) Previous Rx's Medication Instructions Recorded metoprolol succinate 25 mg 25 mg PO DAILY #90 tabs 12/26/23 tablet,extended release 24 hr atorvastatin 10 mg tablet 10 mg PO DAILY #90 tabs 01/09/24 etodolac 200 mg capsule 200 mg PO Q8H PRN pain #14 caps 02/05/24 methocarbamol 500 mg tablet 500 mg PO TID PRN muscle spasm #15 02/05/24 tabs Allergies Allergy/AdvReac Type Severity Reaction Status Date / Time No Known Allergies Allergy Verified 10/18/23 14:35 Worker's Comp Is this a Worker's Comp case?: No [facility] Disclaimer: The information contained in this section may have been updated after the patient was seen, as this information can be updated by other users. Medical History (Updated 02/05/24 @ 10:21 by Yumiko Pierce APRN) Kidney stone HLD (hyperlipidemia) Dyspnea Abnormal electrocardiogram [ECG] [EKG] HTN (hypertension) Dizziness Chest pain Surgical History (Updated 02/05/24 @ 09:53 by Corrine Hill RN) H/O vasectomy Social History Smoking Status: Never smoker alcohol intake: never substance use type: denies use current occupational status: other Travel in the last 8 weeks: None household members: spouse and family housing: house ROS Obtained: Yes All systems reviewed & no additional complaints except as documented and Yes Systems reviewed as appropriate & no additional complaints except as documented Constitutional Constitutional: Reports system reviewed and no additional complaints, except as documented, Reports as per HPI, Denies body ache, Denies chills and Denies fever(s) Gastrointestinal Gastrointestingal: Reports system reviewed and no additional complaints, except as documented and as per HPI Genitourinary Male Genitourinary: Reports system reviewed and no additional complaints, except as documented, Reports as per HPI, Denies difficulty urinating, Denies penile discharge, Denies testicular pain, Denies urinary frequency, Denies urinary hesitancy and Denies urinary urgency Musculoskeletal Musculoskeletal: Reports system reviewed and no additional complaints, except as documented, Reports as per HPI, Reports back pain and Reports myalgias Integumentary/Breasts Skin/Breast: Reports system reviewed and no additional complaints, except as documented and Reports as per HPI Physical Exam General General appearance: alert and in no apparent distress Respiratory Respiratory exam: Present normal lung sounds bilaterally; Absent respiratory distress or wheezes Cardiovascular Cardiovascular exam: Present regular rate, normal rhythm and normal heart sounds Back Exam Back exam: Present tenderness Back 1 view image: 2 1. tenderness with palpation, reports catch like feeling and spasm worse with certain movement Denies loss of control of bowel or bladder denies radiation of pain Neurological Exam Neurological exam: Present alert, oriented X3 and normal gait Medical Decision Making Rah Inquiry Pt receiving controlled substance: No Vital Signs: 02/05/24 09:40 Temperature 98.0 F Temperature Source Oral Pulse Rate [Left Brachial] 73 Respiratory Rate 20 Blood Pressure [Left Arm] 134/86 Blood Pressure Mean [Left Arm] 102 Blood Pressure Source [Left Arm] Automatic Cuff Blood Pressure Position [Left Arm] Sitting 02 Sat by Pulse Oximetry 98 Oxygen Delivery Method Room Air Lab Data Lab Results 02/05/24 09:53: Urine Color Yellow, Urine Appearance Clear, Urine pH 7.0, Ur Specific [place] 1.010, Urine Protein Negative, Urine Glucose (UA) Negative, Urine Ketones Negative, Urine Blood Negative, Urine Nitrate Negative, Urine Bilirubin Negative, Urine Urobilinogen 0.2, Ur Leukocyte Esterase Negative
[2024-02-05 10:25] VITALS: BP 134/86; PULSE 73; RESP 20; TEMP 36.7; O2SAT 98
== END 2024-02-05 10:28 | disposition home or self-care (01) ==
PROVIDERS: Emergency Provider Nurse Practitioner; PCP Family Medicine
DX: S39.012A Strain of muscle, fascia and tendon of lower back, initial encounter (principal); X50.0XXA Overexertion from strenuous movement or load, initial encounter
CPT/HCPCS: 81003; 99204; 99212; G0463

== ENCOUNTER 2024-03-04 16:29 | Emergency (ER) | payer BC, SELFPAY ==
[2024-03-04 16:35] VITALS: BP 135/87; PULSE 87; RESP 18; TEMP 36.8; O2SAT 100; BMI 29.9
--- NOTE | 2024-03-04 16:45 | EXP.UTC ---
Discharge Plan Disposition Patient Disposition: Home, Self-Care Condition: Good Prescriptions Prescriptions: New benzonatate 100 mg capsule 100 mg PO TID PRN (Reason: cough) Qty: 30 0RF fluticasone propionate [Flonase Allergy Relief] 50 mcg/actuation spray,suspension 1 - 2 spray intranasal DAILY Qty: 16 0RF Rx Instructions: administer into each nostril azithromycin [Zithromax Z-Lenard] 250 mg tablet See Rx Instructions .ROUTE .COMPLEX 5 Days Qty: 6 0RF Rx Instructions: For 250 mg dose pack: take 500 mg today (day 1), then 250 mg for 4 days (days 2-5) methylprednisolone [Medrol (Lenard)] 4 mg tablets,dose pack See Rx Instructions .Route .COMPLEX 6 Days Qty: 21 0RF Rx Instructions: taper pack; guaifenesin [Mucinex] 600 mg tablet extended release 12hr 1,200 mg PO BID PRN (Reason: cough) Qty: 20 0RF No Action metoprolol succinate 25 mg tablet extended release 24 hr 25 mg PO DAILY Qty: 90 1RF atorvastatin 10 mg tablet 10 mg PO DAILY Qty: 90 3RF etodolac 200 mg capsule 200 mg PO Q8H PRN (Reason: pain) Qty: 14 0RF methocarbamol 500 mg tablet 500 mg PO TID PRN (Reason: muscle spasm) Qty: 15 0RF esomeprazole magnesium [Nexium] 40 mg Capsule,Delayed Release(Dr/Ec) 40 mg PO DAILY fexofenadine [Radha Allergy] 60 mg tablet 60 mg PO DAILY Referrals Follow up/Referrals: Tanvir Monsivais MD [Primary Care Provider] - See instructions Activity Restrictions/Add. Instructions Additional Instructions/Restrictions: Start antibiotic today. Be sure to complete entire prescription even if feeling better Monitor temp. Tylenol every 4 hours as needed and / or ibuprofen every 6 hours as needed ( As long as your primary care physician has told you that it ok to take both. For fever/aches/pains ER if no less than 101 despite Tylenol or Motrin Humidifier/vaporizer or hot steamy shower Inhaler every 4-6 hours as needed like we discussed. If unsure how to use it, ask pharmacist to demonstrate how. Should help open airways and improve cough, wheezing, and shortness of breath Mucinex during the day for your cough and cough suppressant only at night. Be sure to drink lots of water. *Tessalon Perles will not cause drowsiness but use at bedtime to help stop cough so that you may get some rest. *Start steroid today. Helps with inflammation therefore, cough and wheezing. Follow directions on the package. Reviewed side effects. Patient reports taking them before. Follow up IMMEDIATELY for new or worsening of symptoms OR no noticeable improvement over the next 48-72 hours. 911 immediately for any life threatening symptoms such as chest pain or difficulty breathing Clinical Impressions Clinical Impression: Bronchitis Instructions Patient Instructions: Acute Bronchitis, Azithromycin, Methylprednisolone Print Language Print Language: Welsh Discharge ED Provider: Yumiko Pierce [facility] [place] HPI General Stated complaint: fatigue congestion soa headache Mode of Arrival: Ambulatory Source of Information: Patient Limitations: No Limitations Time Seen by Provider: 03/04/24 16:45 Description of Symptoms (Recalled from Triage Doc. by RN): PATIENT C/O FEELING FATIGUED, CONGESTION, SOA, AND OCCASIONAL DRY COUGH THAT STARTED LAST WEEK HEENT Symptoms (Recalled from RN notes): Yes Resp Symptoms (Recalled from RN notes): Yes Skin Symptoms (Recalled from RN notes): No MS Symptoms (Recalled from RN notes): No Functional Status (Recalled from RN notes): WNL History of Present Illness Provider Complaint: Patient states that he has not been feeling well for over a week States that he has been having cough, chest congestion, scratchy throat, fatigue pressure in his ears and earlier today felt like he was a little SOA with dry cough States this evening he was still not feeling well so he came in to get checked Related Data Home Medications ?Medication ?Instructions ?Recorded ?Confirmed esomeprazole magnesium 40 mg 40 mg PO DAILY GERD 06/02/22 02/05/24 capsule,delayed release (Nexium) fexofenadine 60 mg tablet (Radha 60 mg PO DAILY allergies 10/18/23 02/05/24 Allergy) Previous Rx's ?Medication ?Instructions ?Recorded metoprolol succinate 25 mg 25 mg PO DAILY #90 tabs 12/26/23 tablet,extended release 24 hr atorvastatin 10 mg tablet 10 mg PO DAILY #90 tabs 01/09/24 etodolac 200 mg capsule 200 mg PO Q8H PRN pain #14 caps 02/05/24 methocarbamol 500 mg tablet 500 mg PO TID PRN muscle spasm #15 02/05/24 tabs azithromycin 250 mg tablet See Rx Instructions PO .COMPLEX 5 03/04/24 (Zithromax Z-Lenard) days #6 tabs benzonatate 100 mg capsule 100 mg PO TID PRN cough #30 caps 03/04/24 fluticasone propionate 50 1 - 2 spray intranasal DAILY #16 03/04/24 mcg/actuation nasal grams spray,suspension (Flonase Allergy Relief) guaifenesin 600 mg tablet, 1,200 mg (2 x 600 mg) PO BID PRN 03/04/24 extended release 12 hr (Mucinex) cough #20 tabs methylprednisolone 4 mg tablets in See Rx Instructions .Route 03/04/24 a dose pack (Medrol (Lenard)) .COMPLEX 6 days #21 tabs Allergies Allergy/AdvReac Type Severity Reaction Status Date / Time No Known Allergies Allergy Verified 10/18/23 14:35 Worker's Comp Is this a Worker's Comp case?: No [facility] Disclaimer: The information contained in this section may have been updated after the patient was seen, as this information can be updated by other users. Medical History (Updated 03/04/24 @ 16:50 by Yumiko Pierce APRN) Kidney stone HLD (hyperlipidemia) Dyspnea Abnormal electrocardiogram [ECG] [EKG] HTN (hypertension) Dizziness Chest pain Surgical History (Updated 02/05/24 @ 09:53 by Corrine Hill RN) H/O vasectomy Social History Smoking Status: Never smoker alcohol intake: never substance use type: denies use current occupational status: other Travel in the last 8 weeks: None household members: spouse and family housing: house ROS Obtained: Yes All systems reviewed & no additional complaints except as documented and Yes Systems reviewed as appropriate & no additional complaints except as documented Constitutional Constitutional: Reports system reviewed and no additional complaints, except as documented, Reports as per HPI and Reports headache(s) ENT Ears, Nose, Mouth, and Throat: Reports system reviewed and no additional complaints, except as documented, Reports as per HPI, Reports otalgia, Reports headache(s), Reports sinus pain and Reports sinus pressure Cardiovascular Cardiovascular: Reports system reviewed and no additional complaints, except as documented and Reports as per HPI Respiratory Respiratory: Reports system reviewed and no additional complaints, except as documented, Reports as per HPI, Reports shortness of breath (earlier on and off has inhaler at home), Reports chest congestion and Reports cough Gastrointestinal Gastrointestingal: Reports system reviewed and no additional complaints, except as documented and as per HPI Neurologic Neurologic: Reports headache(s) Physical Exam General General appearance: alert and in no apparent distress ENT ENT exam: Present mucous membranes moist Expanded ENT Exam TM/Canal exam: Bilateral TM: bulging Nose exam: Present sinus tenderness Throat exam: Present other (Pharyngeal erythema noted with PND) Respiratory Respiratory exam: Present normal lung sounds bilaterally; Absent respiratory distress or wheezes Cardiovascular Cardiovascular exam: Present regular rate, normal rhythm and normal heart sounds Neurological Exam Neurological exam: Present alert, oriented X3 and normal gait Medical Decision Making Rah Inquiry Pt receiving controlled substance: No Rah was queried for this patient: No Vital Signs: 03/04/24 16:35 Temperature 98.2 F Temperature Source Oral Pulse Rate [Left Brachial] 87 Respiratory Rate 18 Blood Pressure [Left Arm] 135/87 Blood Pressure Mean [Left Arm] 103 Blood Pressure Source [Left Arm] Automatic Cuff Blood Pressure Position [Left Arm] Sitting 02 Sat by Pulse Oximetry 100 Oxygen Delivery Method Room Air
[2024-03-04 16:53] VITALS: BP 135/87; PULSE 87; RESP 18; TEMP 36.8; O2SAT 100
== END 2024-03-04 16:55 | disposition home or self-care (01) ==
PROVIDERS: Emergency Provider Nurse Practitioner; PCP Family Medicine
DX: J20.9 Acute bronchitis, unspecified (principal); R06.02 Shortness of breath; R51.9 Headache, unspecified; R07.0 Pain in throat; R53.83 Other fatigue; H92.03 Otalgia, bilateral; R05.9 Cough, unspecified; I10 Essential (primary) hypertension; E78.5 Hyperlipidemia, unspecified
CPT/HCPCS: 99212; 99214; G0463

== ENCOUNTER 2024-03-15 11:31 | Emergency (ER) | payer BC, SELFPAY ==
--- NOTE | 2024-03-15 12:48 | EXP.UTC ---
Discharge Plan Disposition Patient Disposition: Home, Self-Care Condition: Good Prescriptions Prescriptions: New albuterol sulfate [Ventolin HFA] 90 mcg/actuation HFA aerosol inhaler 2 puff inhalation Q6H PRN (Reason: shortness of breath or wheezing) Qty: 6.7 0RF hydroxyzine pamoate [Vistaril] 25 mg capsule 25 mg PO Q6H PRN (Reason: anxiety) Qty: 30 0RF methylprednisolone 4 mg Tablets,Dose Pack 4 mg PO DIRECTED 6 Days Qty: 21 0RF Rx Instructions: Take 1 pack as directed for 6 days No Action metoprolol succinate 25 mg tablet extended release 24 hr 25 mg PO DAILY Qty: 90 1RF atorvastatin 10 mg tablet 10 mg PO DAILY Qty: 90 3RF etodolac 200 mg capsule 200 mg PO Q8H PRN (Reason: pain) Qty: 14 0RF methocarbamol 500 mg tablet 500 mg PO TID PRN (Reason: muscle spasm) Qty: 15 0RF esomeprazole magnesium [Nexium] 40 mg Capsule,Delayed Release(Dr/Ec) 40 mg PO DAILY fexofenadine [Radha Allergy] 60 mg tablet 60 mg PO DAILY benzonatate 100 mg capsule 100 mg PO TID PRN (Reason: cough) Qty: 30 0RF fluticasone propionate [Flonase Allergy Relief] 50 mcg/actuation spray,suspension 1 - 2 spray intranasal DAILY Qty: 16 0RF Rx Instructions: administer into each nostril azithromycin [Zithromax Z-Lenard] 250 mg tablet See Rx Instructions .ROUTE .COMPLEX 5 Days Qty: 6 0RF Rx Instructions: For 250 mg dose pack: take 500 mg today (day 1), then 250 mg for 4 days (days 2-5) methylprednisolone [Medrol (Lenard)] 4 mg tablets,dose pack See Rx Instructions .Route .COMPLEX 6 Days Qty: 21 0RF Rx Instructions: taper pack; guaifenesin [Mucinex] 600 mg tablet extended release 12hr 1,200 mg PO BID PRN (Reason: cough) Qty: 20 0RF Referrals Follow up/Referrals: Tanvir Monsivais MD [Primary Care Provider] - See instructions Activity Restrictions/Add. Instructions Additional Instructions/Restrictions: Drink plenty of fluids. Take tylenol or ibuprofen for pain or fever. Take the medications as directed. Follow up with your regular doctor. GO TO THE ER FOR ANY WORSENING SYMPTOMS Don't start the oral steroids (medrol dose pack) until tomorrow since you had the shot here Clinical Impressions Clinical Impression: Bronchitis Instructions Patient Instructions: DI for Acute Bronchitis, Dexamethasone Injection Print Language Print Language: Jamaican Discharge ED Provider: Tuan Cruz [facility] [place] HPI General Stated complaint: SOA, stuff nose Time Seen by Provider: 03/15/24 12:48 Related Data Home Medications ?Medication ?Instructions ?Recorded ?Confirmed esomeprazole magnesium 40 mg 40 mg PO DAILY GERD 06/02/22 02/05/24 capsule,delayed release (Nexium) fexofenadine 60 mg tablet (Radha 60 mg PO DAILY allergies 10/18/23 02/05/24 Allergy) Previous Rx's ?Medication ?Instructions ?Recorded metoprolol succinate 25 mg 25 mg PO DAILY #90 tabs 12/26/23 tablet,extended release 24 hr atorvastatin 10 mg tablet 10 mg PO DAILY #90 tabs 01/09/24 etodolac 200 mg capsule 200 mg PO Q8H PRN pain #14 caps 02/05/24 methocarbamol 500 mg tablet 500 mg PO TID PRN muscle spasm #15 02/05/24 tabs azithromycin 250 mg tablet See Rx Instructions PO .COMPLEX 5 03/04/24 (Zithromax Z-Lenard) days #6 tabs benzonatate 100 mg capsule 100 mg PO TID PRN cough #30 caps 03/04/24 fluticasone propionate 50 1 - 2 spray intranasal DAILY #16 03/04/24 mcg/actuation nasal grams spray,suspension (Flonase Allergy Relief) guaifenesin 600 mg tablet, 1,200 mg (2 x 600 mg) PO BID PRN 03/04/24 extended release 12 hr (Mucinex) cough #20 tabs methylprednisolone 4 mg tablets in See Rx Instructions .Route 03/04/24 a dose pack (Medrol (Lenard)) .COMPLEX 6 days #21 tabs albuterol sulfate 90 mcg/actuation 2 puff inhalation Q6H PRN 03/15/24 aerosol inhaler (Ventolin HFA) shortness of breath or wheezing #6.7 grams hydroxyzine pamoate 25 mg capsule 25 mg PO Q6H PRN anxiety #30 caps 03/15/24 (Vistaril) methylprednisolone 4 mg tablets in 4 mg PO DIRECTED 6 days #21 tabs 03/15/24 a dose pack Allergies Allergy/AdvReac Type Severity Reaction Status Date / Time No Known Allergies Allergy Verified 10/18/23 14:35 [facility] Disclaimer: The information contained in this section may have been updated after the patient was seen, as this information can be updated by other users. Medical History (Updated 03/15/24 @ 13:49 by Tuan Cruz APRN) Kidney stone HLD (hyperlipidemia) Dyspnea Abnormal electrocardiogram [ECG] [EKG] HTN (hypertension) Dizziness Chest pain Surgical History (Updated 02/05/24 @ 09:53 by Corrine Hill RN) H/O vasectomy Social History Smoking Status: Never smoker alcohol intake: never substance use type: denies use current occupational status: other Travel in the last 8 weeks: None household members: spouse and family housing: house ROS Obtained: Yes All systems reviewed & no additional complaints except as documented Constitutional Constitutional: Reports poor appetite Eyes Eyes: Reports system reviewed and no additional complaints, except as documented ENT Ears, Nose, Mouth, and Throat: Reports as per HPI Cardiovascular Cardiovascular: Reports system reviewed and no additional complaints, except as documented and Denies chest pain Respiratory Respiratory: Denies shortness of breath, Reports chest congestion, Reports cough, Denies stridor and Denies wheezing Gastrointestinal Gastrointestingal: Reports system reviewed and no additional complaints, except as documented; Denies abdominal pain, diarrhea or vomiting Musculoskeletal Musculoskeletal: Reports system reviewed and no additional complaints, except as documented and Denies arthralgias Integumentary/Breasts Skin/Breast: Reports system reviewed and no additional complaints, except as documented and Denies rash Neurologic Neurologic: Denies paresthesias Allergic/Immunologic Allergic/Immunologic: Denies wheezing Physical Exam General General appearance: alert and in no apparent distress Eye Eye exam: Present normal appearance, PERRL and EOMI ENT ENT exam: Present mucous membranes moist and normal external ear exam Expanded ENT Exam External ear exam: Present normal external inspection TM/Canal exam: Bilateral TM: erythema and bulging Nose exam: Absent sinus tenderness Nasal speculum exam: Bilateral: normal Mouth exam: Present normal external inspection; Absent drooling Teeth exam: Present normal inspection Throat exam: Present tonsillar erythema and tonsillomegaly Neck Neck exam: Present normal inspection, full ROM and trachea midline; Absent tenderness, lymphadenopathy or thyromegaly Chest Chest inspection: Present normal inspection and symmetric chest wall rise; Absent tenderness or rash Respiratory Respiratory exam: Present normal lung sounds bilaterally; Absent respiratory distress, wheezes, stridor or accessory muscle use Cardiovascular Cardiovascular exam: Present regular rate, normal rhythm and normal heart sounds Abdominal Exam Abdominal exam: Present soft; Absent distention, tenderness, guarding, rebound or rigidity Extremities Exam Extremities exam: Present normal inspection, full ROM and normal capillary refill; Absent tenderness or calf tenderness Back Exam Back exam: Present normal inspection and full ROM; Absent tenderness Neurological Exam Neurological exam: Present alert and oriented X3 Psychiatric Psychiatric exam: Present normal affect and normal mood Skin Skin exam: Present warm, dry, intact and normal color Lymphatic Lymphatic Findings: no adenopathy Medical Decision Making Medical Records Medical records reviewed: No I reviewed the patient's medical records. Rah Inquiry Pt receiving controlled substance: No
[2024-03-15 12:54] VITALS: BMI 28.8
--- NOTE | 2024-03-15 12:54 | XR_ITS ---
FINAL REPORT TECHNIQUE: Chest PA & Lateral CLINICAL HISTORY: congestion COMPARISON: 06/02/2022 FINDINGS: 2 views of the chest were performed. The heart size is normal. The mediastinum is within normal limits. There is no acute cardiopulmonary process. There are no pleural effusions. There is no pneumothorax. The bony thorax appears intact. There is a small calcified granuloma present in the right lower lung field. IMPRESSION: No acute cardiopulmonary process. Reviewed, Interpreted and Dictated by Melvin Denson MD Transcribed by Joyce Serna Authenticated and [facility]
[2024-03-15 12:55] VITALS: BP 150/84; PULSE 62; RESP 18; TEMP 36.6; O2SAT 100; BMI 28.8
[2024-03-15] MEDS: IPRATROPIUM/ALBUTEROL 3 ML NEB IH (12:55)
[2024-03-15] MEDS: DEXAMETHASONE 4MG/ML 1ML VIAL 8 MG IM (13:35)
[2024-03-15 14:01] VITALS: BP 150/84; PULSE 62; RESP 18; TEMP 36.6; O2SAT 100
== END 2024-03-15 14:02 | disposition home or self-care (01) ==
PROVIDERS: Emergency Provider Nurse Practitioner Family; PCP Family Medicine
DX: J20.9 Acute bronchitis, unspecified (principal); R06.02 Shortness of breath; R05.9 Cough, unspecified
CPT/HCPCS: 71046; 96372; 99212; 99214; G0463; J1100; J7620

== ENCOUNTER 2024-05-23 14:50 | Emergency (ER) | payer BC, SELFPAY ==
[2024-05-23 15:01] VITALS: BP 152/94; PULSE 99; RESP 18; TEMP 36.6; O2SAT 96; BMI 29.0
--- NOTE | 2024-05-23 15:18 | EXP.UTC ---
Discharge Plan Disposition Patient Disposition: Home, Self-Care Condition: Good Prescriptions Prescriptions: New methylprednisolone [Medrol (Lenard)] 4 mg tablets,dose pack See Rx Instructions .Route .COMPLEX 6 Days Qty: 21 0RF Rx Instructions: taper pack; amoxicillin-pot clavulanate 875-125 mg Tablet 1 tab PO Q12H Qty: 20 0RF dextromethorphan polistirex [12-Hour Cough Relief] 30 mg/5 mL suspension,extended rel 12 hr 10 ml PO Q12H PRN (Reason: cough) Qty: 89 0RF guaifenesin [Mucinex] 600 mg tablet extended release 12hr 1,200 mg PO BID PRN (Reason: cough) Qty: 20 0RF No Action metoprolol succinate 25 mg tablet extended release 24 hr 25 mg PO DAILY Qty: 90 1RF atorvastatin 10 mg tablet 10 mg PO DAILY Referrals Follow up/Referrals: Tanvir Monsivais MD [Primary Care Provider] - See instructions Activity Restrictions/Add. Instructions Additional Instructions/Restrictions: Start antibiotic today. Be sure to complete entire prescription even if feeling better Monitor temp. Tylenol every 4 hours as needed and / or ibuprofen every 6 hours as needed ( As long as your primary care physician has told you that it ok to take both. For fever/aches/pains ER if no less than 101 despite Tylenol or Motrin Humidifier/vaporizer or hot steamy shower Inhaler every 4-6 hours as needed like we discussed. If unsure how to use it, ask pharmacist to demonstrate how. Should help open airways and improve cough, wheezing, and shortness of breath Mucinex during the day for your cough and cough suppressant only at night. Be sure to drink lots of water. Insurance may not cover a prescriptions for mucinex. Might be cheaper to get 400mg tablets and take 2 tablet in the morning, mid-day and evening with lots of water. *Promethazine DM cough syrup will cause drowsiness. Use only at night. No driving, operating machinery or caring for small children after taking it *Tessalon Perles will not cause drowsiness but use at bedtime to help stop cough so that you may get some rest. *Start steroid today. Helps with inflammation therefore, cough and wheezing. Follow directions on the package. Reviewed side effects. Patient reports taking them before. Follow up IMMEDIATELY for new or worsening of symptoms OR no noticeable improvement over the next 48-72 hours. 911 immediately for any life threatening symptoms such as chest pain or difficulty breathing Clinical Impressions Clinical Impression: Sinusitis, Bronchitis Instructions Patient Instructions: DI for Sinusitis, Acute Bronchitis Print Language Print Language: Slovenian Discharge ED Provider: Yumiko Pierce [facility] [place] HPI General Stated complaint: sinus congestion, cough Mode of Arrival: Ambulatory Source of Information: Patient Time Seen by Provider: 05/23/24 15:18 Description of Symptoms (Recalled from Triage Doc. by RN): POSSIBLE SINUS INFECTION, YELLOW/GREEN DRAINAGE AND COUGH THAT IS WORSE AT NIGHT AND IN THE MORNING X2 WEEKS HEENT Symptoms (Recalled from RN notes): Yes Resp Symptoms (Recalled from RN notes): Yes Skin Symptoms (Recalled from RN notes): No MS Symptoms (Recalled from RN notes): No Functional Status (Recalled from RN notes): WNL History of Present Illness Provider Complaint: Patient states that he went camping about 2-3 weeks ago and started with sinus congestion and pressure that has continued to get worse States that he has been blowing out thick yellowish green mucous and having cough and congestion that is worse at night States that today he was still not feeling any better so he came in to get checked and thinks he may need something for cough Related Data Home Medications ?Medication ?Instructions ?Recorded ?Confirmed atorvastatin 10 mg tablet 10 mg PO DAILY 05/23/24 Previous Rx's ?Medication ?Instructions ?Recorded metoprolol succinate 25 mg 25 mg PO DAILY #90 tabs 12/26/23 tablet,extended release 24 hr amoxicillin 875 mg-potassium 1 tab PO Q12H #20 tabs 05/23/24 clavulanate 125 mg tablet dextromethorphan polistirex 30 10 ml PO Q12H PRN cough #89 mL 05/23/24 mg/5 mL oral susp ext.release 12hr (12-Hour Cough Relief) guaifenesin 600 mg tablet, 1,200 mg (2 x 600 mg) PO BID PRN 05/23/24 extended release 12 hr (Mucinex) cough #20 tabs methylprednisolone 4 mg tablets in See Rx Instructions .Route 05/23/24 a dose pack (Medrol (Lenard)) .COMPLEX 6 days #21 tabs Allergies Allergy/AdvReac Type Severity Reaction Status Date / Time No Known Allergies Allergy Verified 10/18/23 14:35 Worker's Comp Is this a Worker's Comp case?: No [facility] Disclaimer: The information contained in this section may have been updated after the patient was seen, as this information can be updated by other users. Medical History (Updated 05/23/24 @ 15:32 by Yumiko Pierce APRN) Kidney stone HLD (hyperlipidemia) Dyspnea Abnormal electrocardiogram [ECG] [EKG] HTN (hypertension) Dizziness Chest pain Surgical History (Updated 02/05/24 @ 09:53 by Corrine Hill RN) H/O vasectomy Social History Smoking Status: Never smoker alcohol intake: never substance use type: denies use current occupational status: other Travel in the last 8 weeks: None household members: spouse and family housing: house ROS Obtained: Yes All systems reviewed & no additional complaints except as documented and Yes Systems reviewed as appropriate & no additional complaints except as documented Constitutional Constitutional: Reports system reviewed and no additional complaints, except as documented, Reports as per HPI and Reports headache(s) ENT Ears, Nose, Mouth, and Throat: Reports system reviewed and no additional complaints, except as documented, Reports as per HPI, Reports headache(s), Reports sinus pain and Reports sinus pressure Cardiovascular Cardiovascular: Reports system reviewed and no additional complaints, except as documented and Reports as per HPI Respiratory Respiratory: Reports system reviewed and no additional complaints, except as documented, Reports as per HPI, Reports chest congestion and Reports cough Gastrointestinal Gastrointestingal: Reports system reviewed and no additional complaints, except as documented and as per HPI Neurologic Neurologic: Reports headache(s) Physical Exam General General appearance: alert and in no apparent distress ENT ENT exam: Present mucous membranes moist Expanded ENT Exam Nose exam: Present sinus tenderness Throat exam: Present other (PND noted) Respiratory Respiratory exam: Present normal lung sounds bilaterally; Absent respiratory distress or wheezes Cardiovascular Cardiovascular exam: Present regular rate, normal rhythm and normal heart sounds Neurological Exam Neurological exam: Present alert, oriented X3 and normal gait Medical Decision Making Medical Records Screening: Per USPSTF and CDC recommendations, given the prevalence of disease in our region, it is our hospital?s policy to screen for HIV and viral Hepatitis for all patients aged 18 and over and those with ongoing risk factors. Rah Inquiry Pt receiving controlled substance: No Rah was queried for this patient: No Vital Signs: 05/23/24 15:01 Temperature 97.8 F Temperature Source Oral Pulse Rate [Left Radial] 99 H Respiratory Rate 18 Blood Pressure [Left Arm] 152/94 H Blood Pressure Mean [Left Arm] 113 02 Sat by Pulse Oximetry 96
[2024-05-23 15:38] VITALS: BP 152/94; PULSE 99; RESP 18; TEMP 36.6
== END 2024-05-23 15:43 | disposition home or self-care (01) ==
PROVIDERS: Emergency Provider Nurse Practitioner; PCP Family Medicine
DX: J40 Bronchitis, not specified as acute or chronic (principal); J01.90 Acute sinusitis, unspecified
CPT/HCPCS: 99213; G0381

== ENCOUNTER 2024-06-11 10:00 | Outpatient (CLI) | payer BC, SELFPAY ==
[2024-06-11 10:39] LABS: Basophils # 0.1 K/mm3 (0-0.2); Basophils % 1.1 % (0.1-2.0); Eosinophils # 0.1 K/mm3 (0.0-0.4); Eosinophils % 1.9 % (0.1-12.0); Hematocrit 45.8 % (42.0-52.0); Hemoglobin 16.1 g/dL (14.1-18.0); Lymphocytes # 2.6 K/mm3 (0.7-4.5); Mean Corpuscular HGB Conc 35.2 g/dL (31.8-35.4); Mean Corpuscular Hemoglobin 29.4 pg (27.0-31.2); Mean Corpuscular Volume 83.6 fl (80-94); Mean Platelet Volume 7.8 fl (7.4-10.4); Monocytes # 0.4 K/mm3 (0.1-1.0); Platelet Count 280 K/mm3 (142-424); Red Blood Count 5.48 M/mm3 (4.60-6.20); Red Cell Distribution Width 13.1 % (11.5-17.5); White Blood Count 6.2 K/mm3 (4.8-10.8)
[2024-06-11 10:48] LABS: Alanine Aminotransferase 44 U/L (12-78); Alkaline Phosphatase 54 U/L (38-126); Anion Gap 15.4 mEq/L (5-15); Aspartate Amino Transferase 33 U/L (17-59); Bilirubin,Direct 0.2 mg/dl (0.0-0.4); Bilirubin,Indirect 0.6 mg/dL (0.0-0.9); Bilirubin,Total 0.8 mg/dl (0.2-1.3); Bilirubin,Unconjugated 0.7 mg/dL (0.0-1.1); Blood Urea Nitrogen 12 mg/dl (9-20); Calcium 9.9 mg/dl (8.4-10.2); Carbon Dioxide 27 mmol/L (22.0-30.0); Chloride 103 mmol/L (98-107); Chol/HDL Ratio 3.8 (1-3.5); Cholesterol 171 mg/dl (140-200); Estimated Glomerular Filt Rate 83 ml/min (>60); GFR (African American) 101 ML/MIN (>60); Glucose 84 mg/dl (74-100); HDL Cholesterol 45 mg/dl (40-60); Potassium 4.4 mmoL/L (3.5-5.1); Sodium 141 mmol/L (136-145); Total Protein,Serum 7.5 g/dl (6.3-8.2); Triglycerides 163 mg/dl (30-150); VLDL Cholesterol 33 mg/dL (0-40)
[2024-06-11 10:59] LABS: Direct LDL Cholesterol 107.14 mg/dL (100-129)
[2024-06-11 11:18] LABS: Thyroid Stimulating Hormone 1.58 uIU/mL (0.465-4.68)
== END 2024-06-11 23:59 | disposition home or self-care (01) ==
LOC: LAB 10:01
PROVIDERS: PCP Family Medicine; Visit Provider Physician Assistant
DX: K21.9 Gastro-esophageal reflux disease without esophagitis (principal); Z82.49 Family history of ischemic heart disease and other diseases of the circulatory system; R07.89 Other chest pain; E78.49 Other hyperlipidemia; R06.09 Other forms of dyspnea; R94.31 Abnormal electrocardiogram [ECG] [EKG]; I10 Essential (primary) hypertension
CPT/HCPCS: 36415; 80048; 80061; 80076; 84439; 84443; 85025

== ENCOUNTER 2024-06-25 07:48 | Outpatient (CLI) | payer BC, SELFPAY ==
--- NOTE | 2024-06-25 | CA_ITS ---
APPROVED REPORT Exam: Exercise Treadmill Technologist: Jolly Perry Ht: 5 ft 8 in Wt: 189 lbs BSA: 1.99 m2 HR: 72 bpm BP: 147/89 mmHg Stress Test Details Test: Exercise stress testing was performed using a King protocol. HR Resting HR: 72 bpm Max Heart Rate (APMHR): 181.259785 bpm Max HR Achieved: 157 bpm Target HR (85% APMHR): 153.392765 bpm % of APMHR: 86.74 Recovery HR: 107 bpm BP Resting BP: 147.0/89.0 mmHg Max BP: 161.0/95.0 mmHg Recovery BP: 149.0/89.0 mmHg ECG Resting ECG: Normal sinus rhythm Stress ECG Conclusion Symptoms: Dyspnea, fatigue Arrhythmias/Ectopy: None ST-T Changes: Less than [address] depression Conclusion: Normal EKG response to exercise. Electronically signed by : Kim Eckert MD 06/30/2024 23:26:16
== END 2024-06-25 23:59 | disposition home or self-care (01) ==
LOC: RT 07:48
PROVIDERS: PCP Family Medicine; Visit Provider Physician Assistant
DX: R07.89 Other chest pain (principal); R06.09 Other forms of dyspnea; R94.31 Abnormal electrocardiogram [ECG] [EKG]; I10 Essential (primary) hypertension; Z82.49 Family history of ischemic heart disease and other diseases of the circulatory system
CPT/HCPCS: 93017; 93018

== ENCOUNTER 2024-07-25 06:29 | Day surgery (SDC) | payer BC, SELFPAY ==
--- NOTE | 2024-07-18 09:59 | SUR.PREOP ---
Left message w/ call back # on 07/18/24 @ [phone]
[2024-07-19 15:22] VITALS: BMI 28.1
[2024-07-25] MEDS: LACTATED RINGERS 1000ML 1,000 ML 25 ML IV (06:42)
[2024-07-25 06:43] VITALS: BP 130/83; PULSE 77; RESP 18; TEMP 36.1; O2SAT 99
--- NOTE | 2024-07-25 07:04 | EXP.ANES.CKL ---
[facility] Disclaimer: The information contained in this section may have been updated after the patient was seen, as this information can be updated by other users. Medical History GERD (gastroesophageal reflux disease) Family history of coronary artery disease in father Kidney stone HLD (hyperlipidemia) Dyspnea Abnormal electrocardiogram [ECG] [EKG] HTN (hypertension) Dizziness Chest pain Surgical History H/O vasectomy Family History Other Family history of diabetes mellitus type II Family history of hypertension Family history of myocardial infarction Social History Smoking Status: Never smoker alcohol intake: never substance use type: denies use current occupational status: other Travel in the last 8 weeks: None household members: spouse and family housing: house Have you lived/traveled outside [place] in past 30 days?: No Contact w/someone who lives/traveled outside US past 30 days?: No Exposure to someone with infectious disease in past 14 days?: No Do you have a fever (greater than 100.4 F or 38 C)?: No Have you tested positive for COVID-19: No Exposed to someone with COVID-19 in past 14 days?: No Do you have a sore throat?: No Do you have a cough?: No Do you have any weakness?: No Do you have any diarrhea?: No Are you experiencing any unusual bleeding?: No Do you have any muscle aches/pain?: No Do you have any abdominal pain?: No Are you experiencing loss of taste or smell?: No [facility] Anesthesia Checklist Patient Identification Patient Identification: Verbal (Name & ) Structural Data Admitted From: Home Planned Operative Procedure/s: egd NPO Status Verified Time NPO: 00:00 Airway Assessment Mallampati Score:: Class II C-Spine Mobility Assessed: Yes TMJ Mobility Assessed: Yes Dentition: Good Dentition Neurological Assessment Level of Consciousness: Awake, Alert and Appropriate Anesthesia Plan Anesthesia Risk discussed: Yes Anesthesia Plan: Verified ASA Class: II Anesthesia Type: MAC
--- NOTE | 2024-07-25 07:27 | P.HP_ITS ---
History of Present Illness *Admission Date: 07/25/24 *Reason for visit:: Dysphagia-noncardiac chest pain *History of present illness: Mr. Cardona is a 38-year-old gentleman who is here for diagnostic upper endoscopy secondary to multiple episodes of noncardiac chest pain and visits to the em ergency department who is here for diagnostic EGD. He is also had intermittent dysphagia. The examination is deemed medically necessary for upper endoscopy. The patient has been seen, interviewed and examined prior to the procedure by both myself and the anesthesia provider. [facility] Disclaimer: The information contained in this section may have been updated after the patient was seen, as this information can be updated by other users. Medical History GERD (gastroesophageal reflux disease) Family history of coronary artery disease in father Kidney stone HLD (hyperlipidemia) Dyspnea Abnormal electrocardiogram [ECG] [EKG] HTN (hypertension) Dizziness Chest pain Surgical History H/O vasectomy Family History Other Family history of diabetes mellitus type II Family history of hypertension Family history of myocardial infarction Social History Smoking Status: Never smoker alcohol intake: never substance use type: denies use current occupational status: other Travel in the last 8 weeks: None household members: spouse and family housing: house Have you lived/traveled outside US in past 30 days?: No Contact w/someone who lives/traveled outside [place] past 30 days?: No Exposure to someone with infectious disease in past 14 days?: No Do you have a fever (greater than 100.4 F or 38 C)?: No Have you tested positive for COVID-19: No Exposed to someone with COVID-19 in past 14 days?: No Do you have a sore throat?: No Do you have a cough?: No Do you have any weakness?: No Do you have any diarrhea?: No Are you experiencing any unusual bleeding?: No Do you have any muscle aches/pain?: No Do you have any abdominal pain?: No Are you experiencing loss of taste or smell?: No Other Medical History Have you received the Pneumonia Vaccine: No Review of Systems Review of Systems Review of systems (narrative): Negative *Cardiovascular Comments: Negative *Gastrointestinal Comments: Negative *Genitourinary Comments: Negative *Musculoskeletal Comments: Negative *Neurologic Comments: Negative Meds Home Medications and Allergies Home Medications ?Medication ?Instructions ?Recorded ?Confirmed ?Type atorvastatin 10 mg tablet 10 mg PO DAILY 05/23/24 07/19/24 History metoprolol succinate 25 mg 25 mg PO DAILY #90 tabs 06/17/24 07/19/24 Rx tablet,extended release 24 hr esomeprazole magnesium 20 mg 20 mg PO DAILY 06/26/24 07/19/24 History capsule,delayed release (Nexium) New Prescriptions to Start Prescriptions: Allergies Allergy/AdvReac Type Severity Reaction Status Date / Time No Known Allergies Allergy Verified 07/19/24 15:19 Exam Data for Last 24 hours Vital signs and Labs for Last 24 Hours: Temp Pulse Resp BP Pulse Ox O2 Del Method 97.0 F L 77 18 130/83 99 Room Air 07/25/24 06:43 07/25/24 06:43 07/25/24 06:43 07/25/24 06:43 07/25/24 06:43 07/25/24 06:43 *Routine HEENT Exam Head: Present normocephalic Eye: Present EOMI and PERRL ENT: Present mucous membranes moist *Routine Neck Exam Neck: Present supple *Routine Respiratory Exam Respiratory: Present CTA bilaterally *Routine Cardiovascular Exam Cardiovascular: Present RRR *Routine Abdominal Exam Abdominal: Present soft and normoactive bowel sounds; Absent tenderness *Routine Rectal Exam Rectal:: deferred *Routine Genitalia Exam Genitalia:: deferred *Routine Extremities Exam Extremities: Absent cyanosis, clubbing or edema *Routine Skin Exam Skin: Present warm; Absent rash *Routine Neurological Exam Neurological: Present alert and oriented X3 Assessment and Plan *Assessment and plan (1) Non-cardiac chest pain: Status: Acute Category: Medical Code(s): R07.89 - Other chest pain (2) GERD (gastroesophageal reflux disease): Status: Acute Qualifiers: Esophagitis presence: without esophagitis Qualified Code(s): K21.9 - Gastro-esophageal reflux disease without esophagitis Category: Medical Code(s): K21.9 - Gastro-esophageal reflux disease without esophagitis (3) Dysphagia: Status: Acute Category: Medical Code(s): R13.10 - Dysphagia, unspecified Plan A/P: 1. Noncardiac chest pain with intermittent dysphagia and GERD is the preprocedural diagnosis. The patient will be anesthetized/sedated using MAC sedation. The patient has been seen and examined. Cardiac and lung assessment prior to the examination is stable. Proceed with planned diagnostic EGD
--- NOTE | 2024-07-25 07:34 | P.PCN_ITS ---
[facility] Procedure Note Date: 07/25/24 Time: 07:43 Procedure Note:: Upper Endoscopy Procedure Report: Esophagogastroduodenoscopy with cold biopsies Endoscopost: Derek Meeks II, MD Referring Physician: Leobardo Monsivais M.D. Date of Procedure: July 25, 2024 Equipment: Olympus GIF 190 standard upper endoscope Sedation: MAC sedation Indications: Mr. Cardona is a 38-year-old gentleman who is here for diagnostic upper endoscopy secondary to noncardiac chest pain. The patient does report lower retrosternal chest tightness that can be precipitated by work or stress. The patient has had a cardiac evaluation that was normal including cardiac stress testing. The patient does have a history of GERD. Several years ago, he was having heartburn, reflux and dysphagia. He began Nexium 4 to 5 years ago and his symptoms resolved. The patient does report some belching and bloating. He has had a few trips to the emergency department previously and was given a GI cocktail with resolution of symptoms. His last EGD or diagnostic study was approximately 20 years ago when he was diagnosed with an esophageal ulcer. He reports no radiation of his chest pain. He reports no nausea but does have mild early satiety. He reports regular bowel function. Procedure: Prior to the procedure, a history and physical exam was performed, and patient's medications and allergies were reviewed. The risks, benefits and alternatives of the sedation and procedure were discussed with the patient. All questions were answered and informed consent was obtained. The patient was brought to the procedure room. Patient identification and proposed procedure were verified by the physician and the nurse. The patient was placed in a left lateral decubitus position and the scope was passed under direct vision. Throughout the procedure, the patient's blood pressure, pulse, and oxygen saturations were m onitored continuously. The upper GI endoscopy was accomplished without difficulty. The patient tolerated the procedure well. Findings: The scope was passed directly into the upper esophagus and advanced to the third portion of the duodenum. The post bulbar duodenum and duodenal bulb were normal with normal mucosa and conniventes. The scope was withdrawn through a normal duodenal bulb and pylorus into the stomach. There was very mild linear reactive gastropathy of the prepyloric antrum. The body and fundus of the stomach were normal. Biopsies were taken from the antrum. Upon retroflexion there was no hiatal hernia. The scope was then withdrawn into the esophagus. There is no evidence of reflux esophagitis or Foote's. There was a serrated Z-line. Biopsies were taken at the GE junction. There were some tertiary contractions and evidence of mild esophageal dysmotility. The entire esophagus was dilated to 60 Iranian/20 mm with a TTS hydrostatic balloon. There was mild resistance at the cricopharyngeus. The remainder of the esophageal mucosa was normal. Impression: 1. Nonerosive GERD with mild to moderate esophageal dysmotility 2. Mild linear reactive gastropathy of prepyloric antrum Plan: I will follow-up the biopsies. I do suspect functional GERD and esophageal dyskinesia as the etiology of his chest pain/pressure. We will discuss additional dietary measures and treatment options.
[2024-07-25 07:35] VITALS: O2SAT 99
[2024-07-25 07:46] VITALS: BP 107/71; PULSE 78; RESP 16; TEMP 36.2; O2SAT 97
[2024-07-25 07:56] VITALS: BP 105/68; PULSE 75; RESP 18; O2SAT 99
[2024-07-25 08:06] VITALS: BP 117/71; PULSE 66; RESP 18; O2SAT 99
[2024-07-25 08:16] VITALS: BP 109/74; PULSE 71; RESP 18; O2SAT 99
== END 2024-07-25 08:16 | disposition home or self-care (01) ==
PROVIDERS: PCP Family Medicine; Visit Provider Internal Medicine Gastroenterology
PROC: 0DJ08ZZ Inspection of Upper Intestinal Tract, Via Natural or Artificial Opening Endoscopic (ICD-10-PCS; CPT 43239; principal; 2024-07-25 07:30)
DX: R13.10 Dysphagia, unspecified (principal); R07.89 Other chest pain; K21.9 Gastro-esophageal reflux disease without esophagitis; K22.4 Dyskinesia of esophagus; K31.9 Disease of stomach and duodenum, unspecified
CPT/HCPCS: 43239; 43249; C1726; J7120